=== PATIENT | male | born 2000 | race African-American/Black ===

== ENCOUNTER 2022-08-02 22:49 | Inpatient (IN) | payer BC ==
[~2022-08-02 22:49] MED LIST: Iopamidol-370 76% 500 ML 1 ML ONE
[2022-08-02 23:56] LABS: #Lymphocytes 1.1 thou/uL (1.20-3.40); #Monocytes 0.6 thou/uL (0.11-0.59); %Basophils 0.5 % (0.0-1.0); %Eosinophils 0.4 % (0.0-10.0); %Lymphocytes 14.4 % (21.0-51.0); %Monocytes 7.4 % (0.0-10.0); %Neutrophils 77.3 % (42.0-75.0); Hemoglobin 15.4 g/dL (14.0-18.0); Mean Corpuscular HGB CONC 36.2 g/dL (32.0-36.0); Mean Corpuscular Hemoglobin 34.3 pg (27.0-31.0); Mean Corpuscular Volume 94.8 fl (78.0-98.0); Mean Platelet Volume 7.3 fL (7.4-10.4); Platelet Count 164 10x3/uL (130-400); RBC Distribution Width 11.4 % (11.5-14.5); Red Blood Cell (RBC) Count 4.49 mill/uL (4.70-6.10); White Blood Cell (WBC) Count 7.8 10x3/uL (4.8-10.8)
[2022-08-03 00:11] LABS: Acetaminophen Less than 10.0 mcg/mL (10.0-30.0); Alcohol Less than 10 mg/dL (Less than 10); Salicylate Less than 8.0 mg/dL (15.0-30.0)
[2022-08-03 00:13] LABS: ALT (SGPT) 22 U/L (8-55); AST (SGOT) 30 U/L (5-34); Albumin 4.5 g/dL (3.5-5.0); Alkaline Phosphatase 64 U/L (40-110); Anion Gap 18 mmol/L (10-20); BUN (Urea Nitrogen) 15 mg/dL (8.9-20.6); Bilirubin, Total 0.7 mg/dL (0.2-1.2); CK (CPK) 403 U/L (30-200); Calc. Creatinine Clearance 0 mL/min (70-130); Calcium 9.9 mg/dL (7.8-10.44); Carbon Dioxide 18 mmol/L (22-29); Chloride 104 mmol/L (98-107); Estimated GFR 60; Globulin 3.1 g/dL (2.4-3.5); Glucose 97 mg/dL (70-105); Potassium 4.4 mmol/L (3.5-5.1); Protein, Total 7.6 g/dL (6.0-8.3); Sodium 136 mmol/L (136-145)
[2022-08-03 00:32] LABS: Actual Bicarbonate (HCO3v) 21 mEq/L (22-28); Analyzer IN Cardio OR; Base Excess -4.2 mEq/L (-2.0 to +3.0); Calcium, Ionized (venous) 1.14 mmol/L (1.16-1.32); Chloride (VBG) 104 mmol/L (98-106); Hemoglobin (Hb) 15.9 g/dL (13.2-17.3); Potassium (VBG) 4.05 mmol/L (3.70-5.30); Sodium 134.9 mmol/L (133-146); pH (venous) 7.36 (7.32-7.43)
[2022-08-03] MEDS ORDERED: Aspirin 300 MG Suppository ONE (00:49)
[2022-08-03 04:53] LABS: INR-International Normal Ratio 1.3; PTT 23.5 sec (22.9-36.1); Prothrombin Time 16.9 sec (12.0-14.7)
[2022-08-03 05:55] LABS: Lactic Acid 0.7 mmol/L (0.5-2.2)
[2022-08-03] MEDS: Lactated Ringer's 1,000 ML IV SCH ×2 (06:12→11:11)
[2022-08-03 06:31] LABS: Amphetamine Not Detected (NotDetected); Barbiturates Screen Not Detected (NotDetected); Benzodiazepine Screen Not Detected (NotDetected); Cocaine Metabolite Screen Not Detected (NotDetected); Methadone Not Detected (NotDetected); Methamphetamine Not Detected (NotDetected); Opiate Screen Not Detected (NotDetected); Oxycodone Screen Not Detected (NotDetected); Phencyclidine (PCP) Not Detected (NotDetected); THC/Cannabinoid Screen Not Detected (NotDetected); Tricyclic Screen Not Detected (NotDetected)
[2022-08-03 06:50] VITALS: BMI 26.5
[2022-08-03 09:31] LABS: #Lymphocytes 1.3 thou/uL (1.20-3.40); #Monocytes 0.6 thou/uL (0.11-0.59); #Neutrophils 3.6 thou/uL (1.40-6.50); %Basophils 0.6 % (0.0-1.0); %Eosinophils 0.7 % (0.0-10.0); %Lymphocytes 22.9 % (21.0-51.0); %Neutrophils 64.8 % (42.0-75.0); Hemoglobin 13.9 g/dL (14.0-18.0); Mean Corpuscular HGB CONC 34.3 g/dL (32.0-36.0); Mean Corpuscular Hemoglobin 32.3 pg (27.0-31.0); Mean Corpuscular Volume 94.2 fl (78.0-98.0); Mean Platelet Volume 6.8 fL (7.4-10.4); Platelet Count 367 10x3/uL (130-400); RBC Distribution Width 11.3 % (11.5-14.5); Red Blood Cell (RBC) Count 4.32 mill/uL (4.70-6.10); White Blood Cell (WBC) Count 5.6 10x3/uL (4.8-10.8)
[2022-08-03 09:48] LABS: Anion Gap 10 mmol/L (10-20); BUN (Urea Nitrogen) 10 mg/dL (8.9-20.6); Calc. Creatinine Clearance 118 mL/min (70-130); Carbon Dioxide 23 mmol/L (22-29); Chloride 107 mmol/L (98-107); Estimated GFR 91; Glucose 86 mg/dL (70-105); Potassium 3.4 mmol/L (3.5-5.1); Sodium 137 mmol/L (136-145)
[2022-08-03 09:50] LABS: Cardiac Risk 3.1 (Less than 4.5)
[2022-08-03 10:07] LABS: HIV (1/2) Antibody/Antigen Non-Reactive (NonReactive); HIV 1/2 INDEX 0.15 S/CO (<1.00)
[2022-08-03 11:01] LABS: Syphilis Antibody Nonreactive (Nonreactive); Syphilis Antibody Index 0.06 S/CO (<1.00 Non-Reactive)
[2022-08-03] MEDS: Aspirin 81 mg Enteric Coated Tablet PO SCH (11:11)
[2022-08-03 11:56] LABS: D-Dimer Test Less than 0.27 *mcg/mL (0.27-0.43); HEX PHOS LA Tube 1 38.8 SEC; Hexagonal Phospholipid Neut 0.8 SEC (0-8.0); INR-International Normal Ratio 1.4; PTT 26.5 sec (22.9-36.1); Prothrombin Time 17.3 sec (12.0-14.7)
[2022-08-03 12:52] LABS: PT - Undiluted 17.3 sec (12.0-14.7); PTT - Undiluted 26.5 sec (22.9-36.1); PTT 1:1 Mix 26.1 sec (22.9-36.1)
[2022-08-03 14:40] LABS: PTT 1:1 37C/90 MIN Incubation 26.4 sec (22.9-36.1)
[2022-08-03 14:42] LABS: Cardiolipin IgG Ab 1.7 GPL-U/mL (<10 Negative); Cardiolipin IgM Ab 3.1 MPL-U/mL (<10 Negative); EliA APS New Method **** NEW METHOD ****; beta-2-Glycoprotein I IgA Ab 1.9 U/mL (<7 Negative); beta-2-Glycoprotein I IgG Ab 1.7 U/mL (<7 Negative); beta-2-Glycoprotein I IgM Abs 4.4 U/mL (<7 Negative)
[2022-08-03] MEDS ORDERED: Magnevist 469MG/ML 20 ML VIAL ONE (15:16)
[2022-08-03] MEDS ORDERED: Atorvastatin Calcium 20 MG TAB PO SCH (21:00)
[2022-08-04 05:36] LABS: #Eosinphils 0.1 thou/uL (0.0-0.7); #Lymphocytes 1.5 thou/uL (1.20-3.40); #Monocytes 0.5 thou/uL (0.11-0.59); #Neutrophils 2.5 thou/uL (1.40-6.50); %Basophils 0.6 % (0.0-1.0); %Eosinophils 1.1 % (0.0-10.0); %Monocytes 11.5 % (0.0-10.0); %Neutrophils 54.7 % (42.0-75.0); Hemoglobin 14.4 g/dL (14.0-18.0); Mean Corpuscular HGB CONC 35.3 g/dL (32.0-36.0); Mean Corpuscular Hemoglobin 33.3 pg (27.0-31.0); Mean Corpuscular Volume 94.3 fl (78.0-98.0); Platelet Count 314 10x3/uL (130-400); RBC Distribution Width 11.2 % (11.5-14.5); Red Blood Cell (RBC) Count 4.32 mill/uL (4.70-6.10); White Blood Cell (WBC) Count 4.6 10x3/uL (4.8-10.8)
[2022-08-04 05:49] LABS: Anion Gap 14 mmol/L (10-20); BUN (Urea Nitrogen) 12 mg/dL (8.9-20.6); Calc. Creatinine Clearance 97 mL/min (70-130); Calcium 9.3 mg/dL (7.8-10.44); Carbon Dioxide 23 mmol/L (22-29); Chloride 106 mmol/L (98-107); Estimated GFR 72; Glucose 79 mg/dL (70-105); Potassium 3.7 mmol/L (3.5-5.1); Sodium 139 mmol/L (136-145)
[2022-08-04] MEDS ORDERED: Lactated Ringer's 500 ML IV SCH (08:15)
[2022-08-04] MEDS: Aspirin 81 mg Enteric Coated Tablet PO SCH (09:41)
[2022-08-04] MEDS ORDERED: Atorvastatin Calcium 20 MG TAB PO SCH (09:48)
[2022-08-04 15:37] LABS: Anion Gap 10 mmol/L (10-20); BUN (Urea Nitrogen) 15 mg/dL (8.9-20.6); Calc. Creatinine Clearance 92 mL/min (70-130); Calcium 9.3 mg/dL (7.8-10.44); Carbon Dioxide 23 mmol/L (22-29); Chloride 107 mmol/L (98-107); Estimated GFR 68; Glucose 93 mg/dL (70-105); Potassium 3.7 mmol/L (3.5-5.1); Sodium 136 mmol/L (136-145)
[2022-08-04] MEDS ORDERED: Lactated Ringer's 1,000 ML IV SCH (16:00)
[2022-08-04] MEDS: Lactated Ringer's 1,000 ML IV SCH (16:52)
[2022-08-04] MEDS ORDERED: Atorvastatin Calcium 40 MG TAB PO SCH (21:00)
[2022-08-05] MEDS: Lactated Ringer's 1,000 ML IV SCH ×2 (00:24→09:40)
[2022-08-05 06:02] LABS: Anion Gap 12 mmol/L (10-20); BUN (Urea Nitrogen) 12 mg/dL (8.9-20.6); Calc. Creatinine Clearance 107 mL/min (70-130); Calcium 9.2 mg/dL (7.8-10.44); Carbon Dioxide 25 mmol/L (22-29); Chloride 104 mmol/L (98-107); Estimated GFR 81; Glucose 84 mg/dL (70-105); Potassium 3.7 mmol/L (3.5-5.1); Sodium 137 mmol/L (136-145)
[2022-08-05] MEDS: Aspirin 81 mg Enteric Coated Tablet PO SCH (09:39)
[2022-08-05 11:49] LABS: Factor IX Test 110.7 % ACTIVE (56-149); Factor VIII Test 316.4 % ACTIVE (56-157)
[2022-08-05 11:57] VITALS: BP 127/71; TEMP 98.6
[2022-08-08 11:24] LABS: DRVVT Confirm 34.4
[2022-08-08 11:28] LABS: Protein C Activity 89 % (78-152)
[2022-08-12 15:14] LABS: Activated Protein C Resistance 2.7 ratio (.)
== END 2022-08-05 12:45 | disposition home or self-care (01) | DRG 64 ==
LOC: ERS 22:49 → NEURO 08-03 → EDBD 08-03 → NEURO 08-03 03:08
PROVIDERS: ADMIT Family Medicine; ATTEND Family Medicine
DX: I63.512 Cerebral infarction due to unspecified occlusion or stenosis of left middle cerebral artery (principal); G93.6 Cerebral edema; G81.91 Hemiplegia, unspecified affecting right dominant side; N17.9 Acute kidney failure, unspecified; Z20.822 Contact with and (suspected) exposure to COVID-19; R47.01 Aphasia; R13.10 Dysphagia, unspecified; E86.0 Dehydration; R29.706 NIHSS score 6
CPT/HCPCS: 36415; 70450; 70496; 70498; 70553; 72125; 80048; 80053; 80061; 80306; 80307; 82550; 82805; 83090; 83605; 84443; 84484; 85025; 85240; 85250; 85300; 85303; 85305; 85307; 85379; 85598; 85610; 85611; 85613; 85652; 85730; 85732; 86146; 86147; 86780; 87389; 93005; 93306; 95712; 95819; 95957; A9579; J7120; Q9967; U0003; U0005